=== PATIENT | female | born 1990 | race Caucasian/White ===

== ENCOUNTER 2024-01-16 23:09 | Emergency (ER) | payer SELFPAY | END 2024-01-17 00:24 | disposition home or self-care (01) | LOC: DL.ED 23:09 | DX: J39.9 Disease of upper respiratory tract, unspecified (principal); B97.89 Other viral agents as the cause of diseases classified elsewhere; Z86.16 Personal history of COVID-19; Z88.5 Allergy status to narcotic agent; Z79.891 Long term (current) use of opiate analgesic; Z79.899 Other long term (current) drug therapy | CPT/HCPCS: 87428-QW; 99283; 99284 ==